=== PATIENT | female | born 1950 | race Caucasian/White ===

== ENCOUNTER 2017-01-11 09:06 | Emergency (ER) | payer MEDICARE, OTHER ==
--- NOTE | 2017-01-11 09:27 | ED ---
Fall HPI - General Chief Complaint: Fall Stated Complaint: FALL, RT HIP/LEG INJURY, Hx RT HIP Fx Time Seen by Provider: 01/11/17 09:16 Source: patient, RN notes reviewed Mode of arrival: wheelchair Limitations: physical limitation - History of Present Illness Initial Comments: This a 65-year-old female presents emergency Department chief complaint of fall 1 week ago. Patient states that she was in her hallway walking with her cane in which she slipped and fell. Patient failed onto her right side and has had continuous pain of her right hip and right knee. Patient states she's had a prior CVA and has weakness on her right side. Patient also had a fall one year ago and had a right total hip replacement. Patient states that she did not hit her head there was no loss conscious. Denies any back pain. Patient states she is on current pain medication but it's not helping. Patient did admit to being in constant pain ever since her surgery on her right side. Patient did not follow up with her surgeon for this pain after her fall. Denies any bowel bladder incontinence or retention. Denies any abdominal pain no nausea vomiting. - Related Data Home Medications Medication Instructions Recorded Confirmed RX: Lactulose 20 gm PO TID 01/18/16 01/18/16 RX: OXcarbazepine [Oxcarbazepine] 300 mg PO BID 01/18/16 01/18/16 RX: Propranolol [Inderal] 10 mg PO 0900,1800,2100 01/18/16 01/23/16 RX: levETIRAcetam [Levetiracetam] 1,000 mg PO HS 01/18/16 01/18/16 RX: levETIRAcetam [Levetiracetam] 500 mg PO BID@0800,1200 01/18/16 01/18/16 Previous Rx's Medication Instructions Recorded RX: Docusate [Colace] 100 mg PO BID #60 capsule 01/24/16 RX: Hydrocodone/Acetaminophen 1 - 2 each PO Q6HR PRN #90 tab 01/24/16 [Moro 5-325] Allergies Allergy/AdvReac Type Severity Reaction Status Date / Time morphine AdvReac Nausea & Verified 01/11/17 09:14 Vomiting Review of Systems ROS Statement: Those systems with pertinent positive or pertinent negative responses have been documented in the HPI. ROS Other: All systems not noted in ROS Statement are negative. Past Medical History Past Medical History: COPD, CVA/TIA, Hypertension, Liver Disease, Osteoarthritis (OA), Seizure Disorder Additional Past Medical History / Comment(s): hep C, cirrhosis, fatty liver, cva 2001- rt leg drags abit when pt tired.rt heel fx 2006 History of Any Multi-Drug Resistant Organisms: None Reported Past Surgical History: Joint Replacement, Tonsillectomy, Tubal Ligation Additional Past Surgical History / Comment(s): cataracts, colonoscopy, egd Past Anesthesia/Blood Transfusion Reactions: No Reported Reaction Past Psychological History: No Psychological Hx Reported Smoking Status: Current every day smoker Past Alcohol Use History: None Reported Past Drug Use History: Marijuana - Past Family History Mother Family Medical History: Myocardial Infarction ([place]) Father Family Medical History: Cancer Additional Family Medical History / Comment(s): from melanoma Brother(s) Family Medical History: Cancer Additional Family Medical History / Comment(s): 1 brohter from throat cancer, 1 brother has hypertension Sister(s) Family Medical History: Cancer Additional Family Medical History / Comment(s): breast cancer, hypertension General Exam Limitations: no limitations General appearance: alert, in no apparent distress Head exam: Present: atraumatic, normocephalic, normal inspection Respiratory exam: Present: normal lung sounds bilaterally. Absent: respiratory distress, wheezes, rales, rhonchi, stridor Cardiovascular Exam: Present: regular rate, normal rhythm, normal heart sounds. Absent: systolic murmur, diastolic murmur, rubs, gallop, clicks GI/Abdominal exam: Present: soft, normal bowel sounds. Absent: distended, tenderness, guarding, rebound, rigid Extremities exam: Present: other (Right hip patient has full range of motion there is no bony tenderness, there is no shortening or rotation right knee there is no tenderness, there is ecchymosis noted patient has full range of motion there is no tenderness to the tib-fib pedal pulses are equal bilaterally) Back exam: Present: full ROM. Absent: normal inspection, tenderness, paraspinal tenderness, vertebral tenderness Skin exam: Present: warm, dry, intact, normal color. Absent: rash Course Vital Signs 01/11/17 09:10 Temperature 98.6 F Pulse Rate 60 Respiratory 18 Rate Blood Pressure 140/92 O2 Sat by Pulse 100 Oximetry Medical Decision Making - Medical Decision Making 66-year-old female presented emergency department for fall 1 week ago pain to her right knee and right hip there is no acute fracture. Patient does take chronic pain meds at home. Patient will receive IM injection of pain is here and advised to follow-up with her surgeon Dr. Bar tomorrow. Return parameters were discussed. Patient agrees to plan. Disposition Clinical Impression: Fall, Contusion, hip, Right knee pain Disposition: HOME SELF-CARE Condition: Stable Instructions: Contusion in Adults (ED) Additional Instructions: Please return to the Emergency Department if symptoms worsen or any other concerns. Referrals: Grant Aguiar DO [Primary Care Provider] - 1-2 days Mack Bar DO [Doctor of Osteopathic Medicine] - 1-2 days Time of Disposition: 10:17
--- NOTE | 2017-01-11 09:51 | XR ---
EXAMINATION TYPE: XR knee complete RT DATE OF EXAM: 01/11/2017 CLINICAL HISTORY: pain TECHNIQUE: Three views of the right knee are obtained. COMPARISON: None. FINDINGS: There is no acute fracture/dislocation. The tri-compartment joint spaces appear within no rmal limits. The overlying soft tissue appears unremarkable. IMPRESSION: There is no acute fracture or dislocation.ICD 10 NO FRACTURE, INITIAL EVALUATION
--- NOTE | 2017-01-11 09:52 | XR ---
EXAMINATION TYPE: XR Hip RT and AP Pelvis DATE OF EXAM: 01/11/2017 CLINICAL HISTORY: Pelvic and right hip pain. TECHNIQUE: A single AP view of the pelvis is obtained. Two views of the right hip are obtained. COMPARISON: None. FINDINGS: There is no acute fracture/dislocation evident in the pelvis. The hip and sacroiliac joints appear s ymmetric and unremarkable. The overlying soft tissue appears unremarkable.Two views of right hip michael w no acute fracture or dislocation. Right hip prosthesis is in place. No focal lytic or sclerotic les ion seen in the proximal right femur. The overlying soft tissue is unremarkable. IMPRESSION: There is no acute fracture or dislocation in the pelvis or right hip.
[2017-01-11] MEDS ORDERED: HYDROmorphone 1 MG/ML 1 ML SYRINGE IM STA (10:16)
[2017-01-11 10:27] VITALS: BP 130/64; PULSE 64; RESP 17; TEMP 98.4
== END 2017-01-11 10:32 | disposition home or self-care (01) ==
LOC: EC 09:06
DX: S70.01XA Contusion of right hip, initial encounter (principal); M25.561 Pain in right knee; I10 Essential (primary) hypertension; G40.909 Epilepsy, unspecified, not intractable, without status epilepticus; F17.200 Nicotine dependence, unspecified, uncomplicated; Z88.5 Allergy status to narcotic agent; Z96.641 Presence of right artificial hip joint; Z79.899 Other long term (current) drug therapy; W01.0XXA Fall on same level from slipping, tripping and stumbling without subsequent striking against object, initial encounter; Y93.01 Activity, walking, marching and hiking; Y92.29 Other specified public building as the place of occurrence of the external cause
CPT/HCPCS: 99283; 96372; 73502; 73562; J1170

== ENCOUNTER → 2017-01-15 | Outpatient (CLI) | payer MEDICARE, OTHER ==
--- NOTE | 2017-01-15 11:49 | CT ---
EXAMINATION TYPE: CT pelvis wo con DATE OF EXAM: 01/15/2017 COMPARISON: NONE HISTORY: Aritifical hip joint CT DLP: 195.10 mGycm Automated exposure control for dose reduction was used. Unenhanced CT of the pelvis was performed with bone and soft tissue window settings submitted as well as coronal and sagittal reconstructions. FINDINGS: There is a subtle right hemisacral fracture extending from S1 through S2 identified seen best on margie nal image 34 as well as axial images 14 through 23. Sacroiliac joints are symmetric. There is also va nolvia nondisplaced fracture involving the inferior pubic ramus on the right. No definite displaced supe rior pubic ramus fracture is identified. Right hip prosthesis is noted to be in place. There is no evidence for loosening. No acetabular or pr oximal femoral fracture identified. Degenerative changes lower lumbar spine. IMPRESSION: SUBTLE ACUTE FRACTURES OF THE RIGHT HEMISACRUM AND RIGHT INFERIOR PUBIC RAMUS DISCUSSED.
== END | disposition home or self-care (01) ==
LOC: RADCTMAIN 11:09
PROVIDERS: ATTEND Orthopaedic Surgery
DX: S32.10XA Unspecified fracture of sacrum, initial encounter for closed fracture (principal); S32.591A Other specified fracture of right pubis, initial encounter for closed fracture; Z96.641 Presence of right artificial hip joint; Z47.1 Aftercare following joint replacement surgery
CPT/HCPCS: 72192

== ENCOUNTER → 2017-09-16 | Outpatient (CLI) | payer MEDICARE, OTHER ==
[~2017-09-16] MED LIST: SODIUM CHLORIDE 0.9% 500 ML in EMPTY BAG 1 BAG IV PRN; ZOLEDRONIC ACID 5 MG in SODIUM CHLORIDE 0.9% 100 ML IV NR
[2017-09-16 09:11] VITALS: BP 127/70; PULSE 56; RESP 16; TEMP 98.6
== END | disposition home or self-care (01) ==
LOC: PROCWHC3 08:52
PROVIDERS: ATTEND Family Medicine
DX: M81.0 Age-related osteoporosis without current pathological fracture (principal)
CPT/HCPCS: 96365; J3489

== ENCOUNTER → 2017-12-10 | Outpatient (CLI) | payer MEDICARE, OTHER ==
--- NOTE | 2017-12-10 23:01 | MR ---
EXAMINATION TYPE: MR hip RT wo con DATE OF EXAM: 12/10/2017 COMPARISON: CT 01/15/2017 HISTORY: 67-year-old female right hip replacement two years ago, evaluate for gluteus medius tear TECHNIQUE: Multiplanar, multisequence images of the right hip were obtained without IV contrast. FINDINGS: Extensive metal hardware artifact relating to the patient's right hip replacement. The rectus femoris and hamstring origins appear intact. Enthesopathy is noted at the origin of the ri ght sartorius. Iliopsoas insertions intact. There is a small intrasubstance tear involving the insert ional fibers of the lateral nucleus on the left. On the right, multiple intrasubstance tears are present within the lateral gluteus medius tendon jena uring up to 1.2 cm. Fluid signal along the greater trochanter extends anteriorly to the expected loca tion of the insertional gluteus minimus fibers. The posterosuperior insertion of the gluteus medius i s intact. More inferiorly along the posterolateral aspect of the greater trochanter, a sliver of flui d signal is present. There is similar mild atrophy of the gluteus medius muscle but more moderate to severe atrophy of the right gluteus minimus muscle. The axial STIR sequence shows focal soft tissue edema within the uppermost insertional fibers of the vastus lateralis. Mild degenerative changes at the left hip. Residual abnormal signal is present within the right sacral ala related to the patient's prior sacral alar fracture. Minimal residual signal remains along the right inferior pubic ramus compatible with healed fracture. Fibroid uterus with a dominant 2.9 cm fibroid along the right uterine body which is intramural. A tin y 6 mm intramural fundal fibroid is noted. There is moderate pelvic free fluid correlated clinically. IMPRESSION: 1. Extensive artifact relating to the patient's right hip replacement exacerbated by the high 3T magn et strength. 2. A few small intrasubstance tears of the insertional fibers of the lateral right gluteus medius alexandr suring up to 1.2 cm. No retracted tear. The posterosuperior fibers remain intact. Overall mild atroph y of the gluteus medius muscle belly is stable from 01/15/2017. 3. Suspect a more extensive tear of the right gluteus minimus with moderate to severe fatty atrophy o f its muscle belly. 4. Mild right-sided trochanteric bursitis and focal edema along the proximal most fibers of the vastu s lateralis possibly related to muscle strain. 5. Faint residual signal changes of the now healed right sacral alar and right inferior pubic rami fr actures. 6. Moderate pelvic free fluid. Clinical correlation recommended as to etiology.
== END | disposition home or self-care (01) ==
LOC: RADMRIMAIN 08:23
PROVIDERS: ATTEND Physical Medicine & Rehabilitation
DX: M70.61 Trochanteric bursitis, right hip (principal); S86.911A Strain of unspecified muscle(s) and tendon(s) at lower leg level, right leg, initial encounter; M62.561 Muscle wasting and atrophy, not elsewhere classified, right lower leg; R60.0 Localized edema; Z96.641 Presence of right artificial hip joint

== ENCOUNTER 2018-09-27 12:24 | Day surgery (SDC) | payer MEDICARE, OTHER ==
[2018-09-27 13:03] LABS: Mean Platelet Volume 9.2
[2018-09-27 13:10] VITALS: RESP 16; TEMP 98.5
[2018-09-27 13:14] LABS: INR 1.6 (<1.2); Prothrombin Time 15.9 sec (9.0-12.0)
[2018-09-27 13:19] LABS: Platelet Count 69 k/uL (150-450)
[2018-09-27 14:36] VITALS: BP 133/70; PULSE 93
--- NOTE | 2018-09-27 15:47 | US ---
Therapeutic paracentesis. DATE OF EXAM: 09/27/2018 CLINICAL HISTORY: Ascites The procedure was discussed with the patient. The risks, complications, benefits, and alternatives we re discussed and any questions were answered. Informed consent was obtained. The patient was placed s upine on the ultrasound table and prepped and draped in the usual sterile fashion. All elements of maximal barrier technique were utilized. Under ultrasound guidance, access into the right lower quadrant was obtained, via the paracentesis catheter system and direct ultrasound guidanc e. Approximately 3.9 liters of straw-colored fluid was removed. The patient was stable throughout the pr ocedure and remained stable upon discharge from Department of Radiology. IMPRESSION: Successful therapeutic paracentesis under ultrasound guidance.
== END 2018-09-27 15:02 | disposition home or self-care (01) ==
LOC: RADPROMAIN 12:24
PROVIDERS: ATTEND Internal Medicine Hematology & Oncology
DX: R18.8 Other ascites (principal)
CPT/HCPCS: 36415; 49083; 82565; 85049; 85610

== ENCOUNTER 2018-10-12 16:18 | Inpatient (IN) | payer MEDICARE, OTHER ==
[2018-10-12] MEDS ORDERED: HYDROmorphone 1 MG/ML 1 ML SYRINGE IVP STA (16:36)
--- NOTE | 2018-10-12 16:48 | ED ---
Recheck HPI - General Chief Complaint: Chest Pain Stated Complaint: CHEST PAIN, Ca PATIENT Time Seen by Provider: 10/12/18 16:35 Source: patient, RN notes reviewed, old records reviewed Mode of arrival: wheelchair Limitations: no limitations - History of Present Illness Initial Comments: This is a 68-year-old female the ER for evaluation. Patient is known liver CA. Patient has increasing amount of ascites with shortness of breath and chest pain. Family states patient was seen stage IV, she is going to current chemotherapy. Patient denies any shortness of breath currently, no fevers per patient. No nausea vomiting or diarrhea she does have chronic pain and she is having pain currently MD Complaint: other (Ascites is increasing) -: days(s) Initial Visit For: burn Returns Today for: Called Because of Abnormal Lab/Test Symptoms Since Prior Visit: no new symptoms Context: planned re-check (Increasing ascites and pain. Abdominal pain chest pain) Associated Symptoms: chest pain, shortness of breath, abdominal pain - Related Data Home Medications Medication Instructions Recorded Confirmed levETIRAcetam [Levetiracetam] 500 mg PO QID 01/18/16 10/12/18 Buprenorphine HCl [Belbuca] 450 mcg BC BID 09/23/18 10/12/18 Cholecalciferol [Vitamin D3] 1,000 unit PO DAILY 09/23/18 10/12/18 Furosemide [Lasix] 20 mg PO DAILY 09/23/18 10/12/18 Magnesium Oxide [Mag-Ox] 400 mg PO DAILY 09/23/18 10/12/18 Ondansetron [Zofran] 4 mg PO DAILY 09/23/18 10/12/18 Ranitidine HCl [Zantac] 150 mg PO HS 09/23/18 10/12/18 Spironolactone [Aldactone] 50 mg PO DAILY 09/23/18 10/12/18 oxyCODONE HCL [oxyCODONE HCL (IR)] 15 mg PO Q6H 10/12/18 10/12/18 Allergies Allergy/AdvReac Type Severity Reaction Status Date / Time morphine AdvReac Nausea & Verified 10/12/18 17:08 Vomiting Review of Systems ROS Statement: Those systems with pertinent positive or pertinent negative responses have been documented in the HPI. ROS Other: All systems not noted in ROS Statement are negative. Past Medical History Past Medical History: Cancer, COPD, CVA/TIA, Hypertension, Liver Disease, Osteoarthritis (OA), Seizure Disorder Additional Past Medical History / Comment(s): hep C, cirrhosis, cva 2002- rt leg & arm weak, rt heel fx 2007, stage 4 liver cancer, brain aneurysm 17 yrs. ago, last seizure couple years ago, fluid retention in abdomen, legs History of Any Multi-Drug Resistant Organisms: None Reported Past Surgical History: Joint Replacement, Tonsillectomy, Tubal Ligation Additional Past Surgical History / Comment(s): cataracts, colonoscopy, egd, right hip replaced, ablation of liver Past Anesthesia/Blood Transfusion Reactions: No Reported Reaction Past Psychological History: No Psychological Hx Reported Smoking Status: Current some day smoker Past Alcohol Use History: None Reported Past Drug Use History: Marijuana - Past Family History Mother Family Medical History: Myocardial Infarction ([place]) Father Family Medical History: Cancer Additional Family Medical History / Comment(s): from melanoma Brother(s) Family Medical History: Cancer Additional Family Medical History / Comment(s): 1 brohter from throat cancer, 1 brother has hypertension Sister(s) Family Medical History: Cancer Additional Family Medical History / Comment(s): breast cancer, hypertension General Exam - General Exam Comments Initial Comments: Significant abdominal ascites Limitations: no limitations General appearance: alert, in no apparent distress Head exam: Present: atraumatic, normocephalic, normal inspection Eye exam: Present: normal appearance, PERRL, EOMI. Absent: scleral icterus, conjunctival injection, periorbital swelling ENT exam: Present: normal exam, mucous membranes moist Neck exam: Present: normal inspection. Absent: tenderness, meningismus, lymphadenopathy Respiratory exam: Present: normal lung sounds bilaterally. Absent: respiratory distress, wheezes, rales, rhonchi, stridor Cardiovascular Exam: Present: regular rate, normal rhythm, normal heart sounds. Absent: systolic murmur, diastolic murmur, rubs, gallop, clicks GI/Abdominal exam: Present: soft, normal bowel sounds. Absent: distended, tenderness, guarding, rebound, rigid Extremities exam: Present: normal inspection, full ROM, normal capillary refill. Absent: tenderness, pedal edema, joint swelling, calf tenderness Back exam: Present: normal inspection Neurological exam: Present: alert, oriented X3, CN II-XII intact Psychiatric exam: Present: normal affect, normal mood Skin exam: Present: warm, dry, intact, normal color. Absent: rash Course Vital Signs 10/12/18 10/12/18 10/12/18 16:21 17:30 18:30 Temperature 98.4 F Pulse Rate 109 H 98 98 Respiratory 18 20 20 Rate Blood Pressure 121/59 144/86 131/75 O2 Sat by Pulse 98 99 99 Oximetry - Reevaluation(s) Reevaluation #1: 10/12/18 17:33 Medical record reviewed Reevaluation #2: 10/12/18 17:33 Patient be admitted for possible paracentesis as well as oncology evaluation Medical Decision Making - Medical Decision Making 68 female the ER with significant abdominal ascites. Weakness. Pain. Chest pain. Patient be admitted for therapeutic paracentesis and oncology evaluation - Lab Data Result diagrams: 10/12/18 17:30 10/12/18 17:30 Lab Results 10/12/18 10/12/18 10/12/18 Range/Units 17:30 17:30 17:30 WBC 6.9 (3.8-10.6) k/uL RBC 3.57 L (3.80-5.40) m/uL Hgb 12.6 (11.4-16.0) gm/dL Hct 37.4 (34.0-46.0) % MCV 104.8 H (80.0-100.0) fL MCH 35.2 H (25.0-35.0) pg MCHC 33.5 (31.0-37.0) g/dL RDW 16.5 H (11.5-15.5) % Plt Count 43 L (150-450) k/uL Neutrophils % 80 % Lymphocytes % 6 % Monocytes % 11 % Eosinophils % 2 % Basophils % 0 % Neutrophils # 5.5 (1.3-7.7) k/uL Lymphocytes # 0.4 L (1.0-4.8) k/uL Monocytes # 0.7 (0-1.0) k/uL Eosinophils # 0.1 (0-0.7) k/uL Basophils # 0.0 (0-0.2) k/uL Manual Slide Review Performed Anisocytosis Slight Macrocytosis Moderate PT (9.0-12.0) sec INR (<1.2) APTT (22.0-30.0) sec Sodium 133 L (137-145) mmol/L Potassium 4.6 (3.5-5.1) mmol/L Chloride 101 (98-107) mmol/L Carbon Dioxide 24 (22-30) mmol/L Anion Gap 8 mmol/L BUN 22 H (7-17) mg/dL Creatinine 0.44 L (0.52-1.04) mg/dL Est GFR (CKD-EPI)AfAm >90 (>60 ml/min/1.73 sqM) Est GFR (CKD-EPI)NonAf >90 (>60 ml/min/1.73 sqM) Glucose 98 (74-99) mg/dL Plasma Lactic Acid Vargas 2.4 H* (0.7-2.0) mmol/L Calcium 8.7 (8.4-10.2) mg/dL Total Bilirubin 4.0 H (0.2-1.3) mg/dL AST 138 H (14-36) U/L ALT 65 H (9-52) U/L Alkaline Phosphatase 161 H (38-126) U/L Ammonia 55 H (<30) umol/L Troponin I (0.000-0.034) ng/mL Total Protein 6.0 L (6.3-8.2) g/dL Albumin 2.8 L (3.5-5.0) g/dL Amylase 41 (30-110) U/L Lipase 120 (23-300) U/L 10/12/18 10/12/18 Range/Units 17:30 17:30 WBC (3.8-10.6) k/uL RBC (3.80-5.40) m/uL Hgb (11.4-16.0) gm/dL Hct (34.0-46.0) % MCV (80.0-100.0) fL MCH (25.0-35.0) pg MCHC (31.0-37.0) g/dL RDW (11.5-15.5) % Plt Count (150-450) k/uL Neutrophils % % Lymphocytes % % Monocytes % % Eosinophils % % Basophils % % Neutrophils # (1.3-7.7) k/uL Lymphocytes # (1.0-4.8) k/uL Monocytes # (0-1.0) k/uL Eosinophils # (0-0.7) k/uL Basophils # (0-0.2) k/uL Manual Slide Review Anisocytosis Macrocytosis PT 19.4 H (9.0-12.0) sec INR 2.0 H (<1.2) APTT 28.0 (22.0-30.0) sec Sodium (137-145) mmol/L Potassium (3.5-5.1) mmol/L Chloride (98-107) mmol/L Carbon Dioxide (22-30) mmol/L Anion Gap mmol/L BUN (7-17) mg/dL Creatinine (0.52-1.04) mg/dL Est GFR (CKD-EPI)AfAm (>60 ml/min/1.73 sqM) Est GFR (CKD-EPI)NonAf (>60 ml/min/1.73 sqM) Glucose (74-99) mg/dL Plasma Lactic Acid Vargas (0.7-2.0) mmol/L Calcium (8.4-10.2) mg/dL Total Bilirubin (0.2-1.3) mg/dL AST (14-36) U/L ALT (9-52) U/L Alkaline Phosphatase (38-126) U/L Ammonia (<30) umol/L Troponin I <0.012 (0.000-0.034) ng/mL Total Protein (6.3-8.2) g/dL Albumin (3.5-5.0) g/dL Amylase (30-110) U/L Lipase (23-300) U/L - EKG Data -: EKG Interpreted by Me (EKG shows sinus tachycardia rate of 103, SC 140 with history of 6, QTc 437) Disposition Clinical Impression: Weakness, Ascites, Encephalopathy, Hyperammonemia, Dehydration Disposition: ADMITTED IP TO THIS [facility] Condition: Fair Is patient prescribed a controlled substance at d/c from ED?: No Referrals: Grant Aguiar DO [Primary Care Provider] - 1-2 days
[2018-10-12 18:05] LABS: Prothrombin Time 19.4 sec (9.0-12.0)
[2018-10-12 18:08] LABS: ALT 65 U/L (9-52); AST 138 U/L (14-36); Albumin 2.8 g/dL (3.5-5.0); Alkaline Phosphatase 161 U/L (38-126); Amylase 41 U/L (30-110); Anion Gap 8 mmol/L; Blood Urea Nitrogen 22 mg/dL (7-17); Calcium 8.7 mg/dL (8.4-10.2); Carbon Dioxide 24 mmol/L (22-30); Chloride 101 mmol/L (98-107); Glucose 98 mg/dL (74-99); Lipase 120 U/L (23-300); Potassium 4.6 mmol/L (3.5-5.1); Sodium 133 mmol/L (137-145)
[2018-10-12 18:11] LABS: Anisocytosis Slight; Basophils % (A) 0 %; Eosinophils # (A) 0.1 k/uL (0-0.7); Eosinophils % (A) 2 %; HCT 37.4 % (34.0-46.0); HGB 12.6 gm/dL (11.4-16.0); Lymphocytes # (A) 0.4 k/uL (1.0-4.8); Lymphocytes % (A) 6 %; MCH 35.2 pg (25.0-35.0); MCHC 33.5 g/dL (31.0-37.0); MCV 104.8 fL (80.0-100.0); Macrocytosis Moderate; Mean Platelet Volume 8.7; Monocytes # (A) 0.7 k/uL (0-1.0); Monocytes % (A) 11 %; Neutrophils # (A) 5.5 k/uL (1.3-7.7); Neutrophils % (A) 80 %; RBC 3.57 m/uL (3.80-5.40); RDW 16.5 % (11.5-15.5); WBC 6.9 k/uL (3.8-10.6)
[2018-10-12 18:16] LABS: Lactic Acid, Venous 2.4 mmol/L (0.7-2.0)
[2018-10-12 18:37] LABS: Platelet Count 43 k/uL (150-450)
[2018-10-12] MEDS ORDERED: SODIUM CHLORIDE 0.9% 1,000 ML IV STA ×2 (18:39)
[2018-10-12] MEDS ORDERED: LACTULOSE 20 GM/30 ML CUP PO ONE (18:39)
[2018-10-12] MEDS ORDERED: SODIUM CHLORIDE 0.9% 500 ML 500 ML IV STA (18:39)
[2018-10-12] MEDS ORDERED: SODIUM CHLORIDE 0.9% 1,000 ML IV ONE (18:39)
[2018-10-12] MEDS: HYDROmorphone 1 MG/ML 1 ML SYRINGE IVP PRN (21:07)
[2018-10-12] MEDS ORDERED: NITROGLYCERIN OINT 1 INCH/GM PACKET TOPICAL PRN (21:32)
[2018-10-12] MEDS ORDERED: CALCIUM CARBONATE 500 MG CHEWABLE PO PRN (21:33)
[2018-10-12 21:59] LABS: Creatine Kinase 56 U/L (30-135)
[2018-10-12 22:12] LABS: Creatine Kinase MB 2.2 ng/mL (0.0-2.4); Troponin I <0.012 ng/mL (0.000-0.034)
[2018-10-12] MEDS: BUPRENORPHINE BC SCH (22:35)
[2018-10-12] MEDS: levETIRAcetam 500 MG TAB PO SCH (22:37)
[2018-10-13] MEDS: HYDROmorphone 1 MG/ML 1 ML SYRINGE IVP PRN ×2 (04:01→16:46)
[2018-10-13] MEDS: BUPRENORPHINE BC SCH (08:03)
[2018-10-13] MEDS: MAGNESIUM OXIDE 400 MG TAB PO SCH (08:13)
[2018-10-13] MEDS: LACTULOSE 20 GM/30 ML CUP PO SCH ×2 (08:13→21:39)
[2018-10-13] MEDS: SPIRONOLACTONE 25 MG TAB PO SCH (08:13)
[2018-10-13] MEDS: levETIRAcetam 500 MG TAB PO SCH ×4 (08:14→21:39)
[2018-10-13] MEDS ORDERED: ENOXAPARIN 40 MG/0.4 ML SYRINGE SQ SCH (09:00)
[2018-10-13] MEDS ORDERED: PHYTONADIONE 5 MG in SODIUM CHLORIDE 0.9% 50 ML IVPB STA (09:45)
[2018-10-13 10:42] LABS: Bilirubin, Conjugated 0.3 mg/dL (0.0-0.3); Bilirubin, Delta 1.2 mg/dL (0.0-0.2); Bilirubin,Unconjugated 2.4 mg/dL (0.0-1.1); Total Bilirubin 3.9 mg/dL (0.2-1.3)
[2018-10-13] MEDS: METOPROLOL TARTRATE 25 MG TAB PO SCH ×2 (11:14→21:39)
--- NOTE | 2018-10-13 11:24 | ECHOF ---
Referral Reason:cp, ascites MEASUREMENTS -------- HEIGHT: 170.2 cm WEIGHT: 49.9 kg BP: RVIDd: 3.7 cm (< 3.3) IVSd: 1.0 cm (0.6 - 1.1) LVIDd: 3.3 cm (3.9 - 5.3) LVPWd: 1.1 cm (0.6 - 1.1) IVSs: 1.3 cm LVIDs: 2.0 cm LVPWs: 1.6 cm LA Diam: 3.9 cm (2.7 - 3.8) Ao Diam: 3.2 cm (2.0 - 3.7) AV Cusp: 2.4 cm (1.5 - 2.6) LA Diam: 4.0 cm (2.7 - 3.8) EPSS: 1.4 cm MV E Darion: 0.54 m/s MV DecT: 254 ms MV A Darion: 0.66 m/s MV E/A Ratio: 0.82 RAP: 5.00 mmHg RVSP: 11.52 mmHg MV EF SLOPE: 77.73 mm/s (70 - 150) MV EXCURSION: 2.12 cm (> 18.000) FINDINGS -------- Sinus rhythm. This was a technically good study. The left ventricular size is normal. Left ventricular systolic function is hyperdynamic with an est imated EF of >70%. The right ventricle is normal in size. The left atrial size is normal. The right atrial size is normal. Interatrial Septem not well visulized. The aortic valve is trileaflet, and appears structurally normal. No aortic stenosis or regurgitation. Mild mitral annular calcification present. Mild mitral regurgitation is present. Mild tricuspid regurgitation present. There is no evidence of pulmonary hypertension. The right v entricular systolic pressure, as measured by Doppler, is 11.52mmHg. There is no pulmonic regurgitation present. The aortic root size is normal. IVC Not well visulized. There is a small pericardial effusion is located near the right ventricle. Moderate Pleural Effusio n. CONCLUSIONS -------- 1. The left ventricular size is normal. 2. Left ventricular systolic function is hyperdynamic with an estimated EF of >70%. 3. The right ventricle is normal in size. 4. The left atrial size is normal. 5. The right atrial size is normal. 6. Interatrial Septem not well visulized. 7. The aortic valve is trileaflet, and appears structurally normal. No aortic stenosis or regurgitati on. 8. Mild mitral annular calcification present. 9. Mild mitral regurgitation is present. 10. Mild tricuspid regurgitation present. 11. There is no evidence of pulmonary hypertension. 12. The right ventricular systolic pressure, as measured by Doppler, is 11.52mmHg. 13. There is no pulmonic regurgitation present. 14. The aortic root size is normal. 15. IVC Not well visulized. 16. There is a small pericardial effusion is located near the right ventricle. 17. Moderate Pleural Effusion. [employer] MACHINE OPERATOR: Katy Jaramillo RDCS
[2018-10-13 12:03] LABS: Appearance,Urine Cloudy (Clear); Bilirubin,Urine 1+ (Negative); Blood,Urine Moderate (Negative); Color,Urine Dark Brown; Glucose,Urine (UA) Negative (Negative); Ketones,Urine Trace (Negative); Leukocyte Esterase,Urine Small (Negative); Mucus,Urine Many /hpf; Nitrite,Urine Negative (Negative); Protein,Urine 2+ (Negative); RBC,Urine >182 /hpf (0-5); Specific Gravity,Urine 1.031 (1.001-1.035)
--- NOTE | 2018-10-13 13:22 | XR ---
"EXAMINATION TYPE: XR chest 2V DATE OF EXAM: 10/13/2018 COMPARISON: 01/17/2019 INDICATION: Elevated lactic acid TECHNIQUE: Frontal and lateral views of the chest are obtained. FINDINGS: The heart size is normal. The pulmonary vasculature is normal. Posterior pleural effusions are present bilaterally. There is a nodular density adjacent to the aortic arch measuring 2.5 cm. Workup for primary and metas tatic lesion is recommended. This is at the second rib and which potentially could be creating a summ ation density.. IMPRESSION: 1. Mass is suspected at the left upper lobe measuring 2.[address] chest recommended for additional zain luation. 2. Small posterior pleural effusions. A [place] level critical message alert has been initiated for Solomon Flores MD via the [employer] 36 0 | Critical Results System on 10/13/2018 1:19 PM. This message alert has been sent to Solomon Flores MD via the preferences provided by the clinician for the receipt of Radiology Critical Findings. [facility] ID [id number]."
--- NOTE | 2018-10-13 13:41 | P.CRDCN ---
History of Present Illness History of present illness: This is a pleasant 68-year-old female past medical history significant for stage IV liver cancer diagnosed in June of this year, hypertension, CVA in the past in the setting of a brain aneurysm, seizure disorder, hepatitis C, cirrhosis and former nicotine dependence. She denies history of coronary artery disease and does not follow with a ribbon cutter for any reason. We've been asked to see her in consultation secondary to chest discomfort. She presented to the hospital yesterday afternoon with symptoms of shortness of breath, ascites and chest discomfort. 2 weeks ago she underwent a therapeutic paracentesis with 3.9 L of straw-colored fluid removed. She states the pain in her chest as a sharp stabbing type pain that has been constant for the previous 2 days. There is no radiation to the arm, back, neck or jaw. The pain is not intensified by deep breathing, coughing or movement of her torso. She states her shortness of breath is positional as well as exertional. She has significant lower extremity edema and is currently maintained on Aldactone. EKG obtained on admission reveals sinus mechanism heart rate of 103 with nonspecific T-wave abnormality and T-wave flattening in the inferior leads. There is no old EKG for comparison. Laboratory data reviewed, WBC 6.9, hemoglobin 12.6, platelets 43, INR 2.0, sodium 133, potassium 4.6, creatinine 0.44, lactic acid 2.8, total bilirubin 4, AST 138, ALT 65, alkaline phosphatase 161, ammonia 55, cardiac enzymes negative 3. At the time of my exam: CONSTITUTIONAL: Denies fever. Denies chills. EYES: Denies blurred vision. Denies vision changes. Denies eye pain. EARS, NOSE, MOUTH & THROAT: Denies headache. Denies sore throat. Denies ear pain. CARDIOVASCULAR: Complains of chest pain. Complains of shortness of breath. Complains of orthopnea. Denies PND. Denies palpitations. RESPIRATORY: Denies cough. GASTROINTESTINAL: Complains of abdominal pain. Denies diarrhea. Denies constipation. Denies nausea. Denies vomiting. MUSCULOSKELETAL: Denies myalgias. INTEGUMENTARY: Denies pruitis. Denies rash. NEUROLOGIC: Denies numbness. Denies tingling. Denies weakness. PSYCHIATRIC: Denies anxiety. Denies depression. ENDOCRINE: Complains of fatigue. Denies weight change. Denies polydipsia. Denies polyurina. GENITOURINARY: Denies burning, hematuria or urgency with micturation. HEMATOLOGIC: Denies history of anemia. Denies bleeding. Blood pressure 129/86 heart rate 98 afebrile maintaining oxygen saturation on room air GENERAL: This is a 68-year-old male in no apparent distress at the time of my examination. HEENT: Head is atraumatic, normocephalic. Pupils are equal, round. Sclerae anicteric. Conjunctivae are clear. Mucous membranes of the mouth are moist. Neck is supple. There is no jugular venous distention. No carotid bruit is heard. LUNGS: Clear to auscultation no wheezes, rales or rhonchi. No chest wall tenderness is noted on palpation or with deep breathing. Diminished bilatera lly. HEART: Regular rate and rhythm without murmurs, rubs or gallops. S1 and S2 heard. ABDOMEN: Firm, distended, nontender. Bowel sounds are heard. EXTREMITIES: Significant bilateral lower extremity 3+ pitting peripheral edema and no calf tenderness noted. VASCULAR: Radial and dorsalis pedis pulses palpated, no evidence of clubbing. NEUROLOGIC: Patient is awake, alert and oriented x3. ASSESSMENT Acute ascites status post recent paracentesis Stage IV liver cancer Chest pain, atypical for angina. An acute coronary event has been ruled out PLAN Chest discomfort is very atypical for angina most likely related to increased fluid overload secondary to liver CA causing increased diaphragmatic pressure. Echocardiogram has been obtained and reviewed. Due to hyperdynamic LV we will recommend initiating on Lopressor 25 mg twice a day. Ongoing medical management. No further cardiac workup at this time. Thank you kindly for this consultation. Nurse Practitioner note has been reviewed, I agree with a documented findings and plan of care. Patient was seen and examined. Past Medical History Past Medical History: Cancer, CVA/TIA, Hypertension, Liver Disease, Osteoarthritis (OA), Seizure Disorder Additional Past Medical History / Comment(s): hep C, cirrhosis, cva 2001- rt leg & arm weak, rt heel fx 2006, stage 4 liver cancer, brain aneurysm 17 yrs. ago, last seizure couple years ago, fluid retention in abdomen, legs, immnotherapy- 09/30 History of Any Multi-Drug Resistant Organisms: None Reported Past Surgical History: Joint Replacement, Tonsillectomy, Tubal Ligation Additional Past Surgical History / Comment(s): cataracts, colonoscopy, egd, right hip replaced, ablation of liver Past Anesthesia/Blood Transfusion Reactions: No Reported Reaction Past Psychological History: No Psychological Hx Reported Additional Psychological History / Comment(s): Lives with , Javan. Walker, cane, shower chair. Bars in the shower. Power scooter at home. Hospital bed on order. Smoking Status: Former smoker Past Alcohol Use History: None Reported Additional Past Alcohol Use History / Comment(s): smoked for > 40 years smoked1 cig per day, quit completely in June 2018 quit drinking 2001 Past Drug Use History: Marijuana Additional Drug Use History / Comment(s): Uses marijuana daily. - Past Family History Mother Family Medical History: Myocardial Infarction ([place]) Father Family Medical History: Cancer Additional Family Medical History / Comment(s): from melanoma Brother(s) Family Medical History: Cancer Additional Family Medical History / Comment(s): 1 brohter from throat cancer, 1 brother has hypertension Sister(s) Family Medical History: Cancer Additional Family Medical History / Comment(s): breast cancer, hypertension Medications and Allergies Home Medications Medication Instructions Recorded Confirmed Type levETIRAcetam [Levetiracetam] 500 mg PO QID 01/18/16 10/12/18 History Buprenorphine HCl [Belbuca] 450 mcg BC BID 09/23/18 10/12/18 History Cholecalciferol [Vitamin D3] 1,000 unit PO DAILY 09/23/18 10/12/18 History Furosemide [Lasix] 20 mg PO DAILY 09/23/18 10/12/18 History Magnesium Oxide [Mag-Ox] 400 mg PO DAILY 09/23/18 10/12/18 History Ondansetron [Zofran] 4 mg PO DAILY 09/23/18 10/12/18 History Ranitidine HCl [Zantac] 150 mg PO HS 09/23/18 10/12/18 History Spironolactone [Aldactone] 50 mg PO DAILY 09/23/18 10/12/18 History oxyCODONE HCL [oxyCODONE HCL (IR)] 15 mg PO Q6H 10/12/18 10/12/18 History Allergies Allergy/AdvReac Type Severity Reaction Status Date / Time morphine AdvReac Nausea & Verified 10/12/18 17:08 Vomiting Physical Exam Vitals: Vital Signs Temp Pulse Pulse Resp BP BP Pulse Ox 10/13/18 05:00 98.1 F 98 16 129/86 94 L 10/12/18 23:19 91 141/87 99 10/12/18 23:10 99 168/99 10/12/18 21:28 97.7 F 89 16 143/79 98 10/12/18 19:51 93 16 142/80 96 10/12/18 19:46 98.0 F 93 16 130/76 95 10/12/18 19:20 96 16 134/87 94 L 10/12/18 18:30 98 20 131/75 99 10/12/18 17:30 98 20 144/86 99 10/12/18 16:21 98.4 F 109 H 18 121/59 98 Intake and Output 10/12/18 10/13/18 10/13/18 22:59 06:59 14:59 Intake Total 590 1340 Output Total 200 Balance 590 1140 Intake: Intake, IV Titration 800 Amount Sodium Chloride 0.9% 1, 800 000 ml @ 100 mls/hr IV . Q10H ONE Rx#:[id number] Oral 590 540 Output: Urine 200 Other: Voiding Method Bedside Commode # Bowel Movements 3 Weight 49.895 kg Results 10/12/18 17:30 10/12/18 17:30 Cardiac Enzymes 10/12/18 10/12/18 10/12/18 Range/Units 17:30 17:30 21:41 AST 138 H (14-36) U/L CK-MB (CK-2) 2.2 (0.0-2.4) ng/mL Troponin I <0.012 <0.012 (0.000-0.034) ng/mL 10/13/18 Range/Units 03:58 AST (14-36) U/L CK-MB (CK-2) (0.0-2.4) ng/mL Troponin I <0.012 (0.000-0.034) ng/mL Coagulation 10/12/18 Range/Units 17:30 PT 19.4 H (9.0-12.0) sec APTT 28.0 (22.0-30.0) sec CBC 10/12/18 Range/Units 17:30 WBC 6.9 (3.8-10.6) k/uL RBC 3.57 L (3.80-5.40) m/uL Hgb 12.6 (11.4-16.0) gm/dL Hct 37.4 (34.0-46.0) % Plt Count 43 L (150-450) k/uL Comprehensive Metabolic Panel 10/12/18 Range/Units 17:30 Sodium 133 L (137-145) mmol/L Potassium 4.6 (3.5-5.1) mmol/L Chloride 101 (98-107) mmol/L Carbon Dioxide 24 (22-30) mmol/L BUN 22 H (7-17) mg/dL Creatinine 0.44 L (0.52-1.04) mg/dL Glucose 98 (74-99) mg/dL Calcium 8.7 (8.4-10.2) mg/dL AST 138 H (14-36) U/L ALT 65 H (9-52) U/L Alkaline Phosphatase 161 H (38-126) U/L Total Protein 6.0 L (6.3-8.2) g/dL Albumin 2.8 L (3.5-5.0) g/dL Current Medications Generic Name Dose Route Start Last Admin Trade Name Freq PRN Reason Stop Dose Admin Calcium Carbonate/Glycine 500 mg 10/12/18 21:33 Tums PO TID PRN Heartburn Enoxaparin Sodium 40 mg 10/13/18 09:00 10/13/18 08:02 Lovenox SQ Not Given DAILY [facility] Famotidine 20 mg 10/13/18 21:00 Pepcid PO HS KARELY Hydromorphone HCl 1 mg 10/12/18 16:36 10/13/18 04:01 Dilaudid IVP 1 mg Q4HR PRN Administration Pain Phytonadione 5 mg/ Sodium 50.5 mls @ 100 mls/hr 10/13/18 09:45 Chloride IVPB 10/13/18 10:15 ONCE STA Lactulose 20 gm 10/13/18 09:00 10/13/18 08:13 Cephulac PO 20 gm BID KARELY Administration Levetiracetam 500 mg 10/12/18 22:00 10/13/18 08:14 Keppra PO 500 mg QID KARELY Administration Magnesium Oxide 400 mg 10/13/18 09:00 10/13/18 08:13 Mag-Ox PO 400 mg DAILY KARELY Administration Belbuca 450 Mcg 450 mcg 10/12/18 21:15 10/13/18 08:03 BC Not Given BID KARELY Oxycodone HCl 15 mg 10/13/18 00:00 10/13/18 05:58 Oxyir PO 15 mg Q6H KARELY Administration Spironolactone 50 mg 10/13/18 09:00 10/13/18 08:13 Aldactone PO 50 mg DAILY KARELY Administration Intake and Output 10/12/18 10/13/18 10/13/18 22:59 06:59 14:59 Intake Total 590 1340 Output Total 200 Balance 590 1140 Intake: Intake, IV Titration 800 Amount Sodium Chloride 0.9% 1, 800 000 ml @ 100 mls/hr IV . Q10H ONE Rx#:[id number] Oral 590 540 Output: Urine 200 Other: Voiding Method Bedside Commode # Bowel Movements 3 Weight 49.895 kg 10/12/18 17:30 10/12/18 17:30
[2018-10-13] MEDS: BELBUCA MISCELLANE SCH ×2 (14:10→21:39)
--- NOTE | 2018-10-13 16:38 | HP ---
HISTORY AND PHYSICAL DATE OF ADMISSION: 10/12/2018 DATE OF SERVICE: 10/13/2018 PRESENTING COMPLAINT: Weak, tired, fall. HISTORY OF PRESENTING COMPLAINT: This is a pleasant 68-year-old patient of Dr. Aguiar. Chronic stable medical conditions include left-sided weakness from prior stroke, hypertension, osteoarthritis, seizure disorder. The patient has also got cirrhosis from hepatitis C that has progressed to hepatocellular carcinoma which is stage IV with metastasis to the lungs. The patient is on treatment by Dr. Linares. at the bedside. The patient presented with multitude of symptoms, abdomen distended, weak, tired, run down. The patient is barely able to get around. Yesterday, fell from the sofa, is having some pain in the anterior chest wall, has been losing weight. Appetite is okay. Bowels are okay. Paracentesis was ordered but pro-time is up, hence vitamin K was ordered. Because of the chest pain, cardiology was consulted. REVIEW OF SYSTEMS: CONSTITUTIONAL: Tired, weight loss. HEENT: None. RESPIRATORY: Some shortness of breath. CARDIOVASCULAR: As above. GASTROINTESTINAL: Abdomen distended. GENITOURINARY: None. MUSCULOSKELETAL: Pain in the joints. DERMATOLOGICAL: Some bruising. HEMATOLOGICAL: None. LYMPHATICS: None. PSYCHIATRY: A bit anxious. NEUROLOGICAL: None. PAST MEDICAL HISTORY: Left-sided weakness prior stroke, hypertension, osteoarthritis, seizure disorder, cirrhosis, hepatitis C, hepatocellular carcinoma. PAST SURGICAL HISTORY: Joint replacement, tonsillectomy, tubal ligation, cataracts, right hip replaced, ablation of the liver. SOCIAL HISTORY: Patient lives with her , Javan. Has a walker and support at home, but is very weak. The patient smoked for more than 40 years. Only a few cigarettes a day, stopped about 4 months ago. The patient was drinking heavy in the past, stopped drinking about over 15 years ago. Does use marijuana daily. FAMILY HISTORY: Myocardial infarction, melanoma. HOME MEDICATIONS: 1. Oxycodone 50 mg q.6. 2. Aldactone 50 mg a day. 3. Lasix 20 mg a day. 4. Vitamin D3 1000 units a day. 5. Zantac 150 mg q.h.s. 6. Zofran 4 mg p.o. daily. 7. Magnesium oxide 400 mg p.o. daily. 8. 450 mcg BC b.i.d. 9. Keppra 100 mg q.i.d. ALLERGIES: MORPHINE. PHYSICAL EXAMINATION: VITAL SIGNS: Temperature 98.4, pulse 109, respiration 18, blood pressure 120/59. Pulse ox 98% on room air. GENERAL APPEARANCE: Tired. Emaciated. Lying in bed. BMI 17.2. EYES: Pupils equal. Conjunctivae pale. HEENT: External appearance of nose and ears normal. Oral cavity dry. NECK: JVD not raised. Mass not palpable. RESPIRATORY: Effort increased. LUNGS: Diminished breath sounds. CARDIOVASCULAR: 1st and 2nd sounds normal. No edema. ABDOMEN: Distended, soft. Liver and spleen not palpable. LYMPHATICS: No lymph nodes palpable in the neck and axilla. PSYCHIATRY: Alert and oriented x3. Mood and affect normal. NEUROLOGICAL: Pupils equal. Cranial nerves grossly intact. Power and sensation grossly intact. MUSCULOSKELETAL: Some tenderness over the sternal bone. INVESTIGATIONS: White count 6.9, hemoglobin 12.6, platelets 43. Pro-time 19.4, potassium 4.6, BUN 22, creatinine 0.44, plasma lactic acid 2.4, total bilirubin 4, ammonia level 55, troponin . Albumin 2.8. UA positive leuko esterase, WBC, urine mucus positive. ASSESSMENT: 1. Anterior chest wall pain with some reproducible pain, likely from the pain that followed the patient taking a fall from the sofa, does not sound to be cardiac. 2. Severe protein-calorie malnutrition with bony prominences, loss of muscle mass, albumin down to 2.8. 3. Hyperammonemia secondary to hepatocellular cancer. 4. Lactic acidosis type B, no evidence of sepsis. 5. Hypercoagulable state due to vitamin K deficiency with prolonged protime. 6. Severe thrombocytopenia due to chronic liver disease. 7. Essential hypertension. 8. Primary osteoarthritis. 9. Chronic seizure disorder. 10.Cirrhosis from hepatitis C. 11.Hepatocellular carcinoma stage IV with metastasis to the lungs. 12.Ascites secondary to cirrhosis and malignancy. 13.Advancing medical debility due to underlying advanced malignancy. PLAN: The patient is due for a paracentesis. Did receive IV vitamin K. this is often times rather severe, hence will start oral vitamin K so the patient can be tapped. The patient pain appears to be more musculoskeletal. Cardiology was consulted for the same. The patient also has got mets from the liver. Oncology team has been consulted. PT/OT will also be consulted due to very poor functional state. Care was discussed with the patient and the . Care was discussed. Copy to Dr. Aguiar. MMBREANAL / ANUELN: [id number] /
[2018-10-13] MEDS: PHYTONADIONE ORAL 5 MG/5 ML ORAL.SYRG PO SCH (16:41)
[2018-10-13] MEDS: FAMOTIDINE 20 MG TAB PO SCH (21:39)
[2018-10-14 08:51] LABS: INR 1.9 (<1.2); Prothrombin Time 18.6 sec (9.0-12.0)
[2018-10-14] MEDS: SPIRONOLACTONE 25 MG TAB PO SCH (08:53)
[2018-10-14] MEDS: LACTULOSE 20 GM/30 ML CUP PO SCH ×2 (08:53→21:39)
[2018-10-14] MEDS: levETIRAcetam 500 MG TAB PO SCH ×4 (08:54→21:39)
[2018-10-14] MEDS: METOPROLOL TARTRATE 25 MG TAB PO SCH ×2 (08:54→21:39)
[2018-10-14] MEDS: MAGNESIUM OXIDE 400 MG TAB PO SCH (08:54)
[2018-10-14] MEDS: BELBUCA MISCELLANE SCH ×2 (09:21→21:39)
[2018-10-14] MEDS: PHYTONADIONE ORAL 5 MG/5 ML ORAL.SYRG PO SCH (09:21)
[2018-10-14] MEDS: HYDROmorphone 1 MG/ML 1 ML SYRINGE IVP PRN (10:57)
--- NOTE | 2018-10-14 14:38 | US ---
EXAMINATION TYPE: US abdomen limited DATE OF EXAM: 10/14/2018 COMPARISON: NONE CLINICAL HISTORY: assess for fluid pocket please. Large volume abdominal pelvic ascites is seen. Skin thickness measures 1.1 cm. One of the largest poc kets measures 10 cm. Fluid is seen within all 4 quadrants of the abdomen. IMPRESSION: Large volume abdominopelvic ascites.
[2018-10-14 15:19] LABS: Basophils % (A) 0 %; Eosinophils # (A) 0.2 k/uL (0-0.7); Eosinophils % (A) 2 %; HCT 39.9 % (34.0-46.0); HGB 12.6 gm/dL (11.4-16.0); Hypochromasia Slight; Lymphocytes # (A) 0.5 k/uL (1.0-4.8); Lymphocytes % (A) 5 %; MCH 34.9 pg (25.0-35.0); MCHC 31.5 g/dL (31.0-37.0); Macrocytosis Marked; Mean Platelet Volume 9.2; Monocytes # (A) 1.1 k/uL (0-1.0); Monocytes % (A) 11 %; Neutrophils # (A) 7.6 k/uL (1.3-7.7); Neutrophils % (A) 78 %; RBC 3.61 m/uL (3.80-5.40); RDW 15.8 % (11.5-15.5); WBC 9.7 k/uL (3.8-10.6)
[2018-10-14 15:20] LABS: MCV 110.7 fL (80.0-100.0)
[2018-10-14 15:21] LABS: Platelet Count 52 k/uL (150-450)
--- NOTE | 2018-10-14 21:31 | P.PN ---
Subjective Progress Note Date: 10/14/18 Principal diagnosis: fall, intractable pain In follow-up today patient is seen sitting in a chair, she complains of still feeling pain across her chest, cardiac workup thus far has been negative. Patient also has complaints of discomfort in the back and tailbone area. No fevers, chills, nausea, vomiting, difficulty in breathing, she feels significantly better after paracentesis, abd distension better, leg swelling is stable and uncomfortable for her, no reported bleeding. Objective - Vital Signs Vital signs: Vital Signs Temp 98.5 F 10/14/18 20:35 Pulse 80 10/14/18 20:35 Resp 16 10/14/18 20:35 BP 99/58 10/14/18 20:35 Pulse Ox 97 10/14/18 20:35 Intake & Output 10/14/18 10/14/18 10/15/18 06:59 18:59 06:59 Intake Total 350 Output Total 300 Balance 50 Weight 67 kg Intake: Intake, IV Titration 350 Amount Sodium Chloride 0.9% 1, 350 000 ml @ 100 mls/hr IV . Q10H STA Rx#:[id number] Output: Urine 300 Other: Voiding Method Indwelling Catheter Indwelling Catheter # Bowel Movements 3 - Constitutional General appearance: Present: cooperative, no acute distress, thin - EENT Eyes: Present: EOMI - Respiratory Respiratory: bilateral: CTA - Cardiovascular Rhythm: regular Heart sounds: normal: S1, S2 Abnormal Heart Sounds: Absent: systolic murmur, diastolic murmur, rub, S3 Gallop, S4 Gallop, click, other - Peripheral edema leg Peripheral Edema: bilateral: 2+ - Gastrointestinal General gastrointestinal: Present: distended, normal bowel sounds, soft - Neurologic Neurologic: Present: CNII-XII intact - Musculoskeletal Musculoskeletal: Present: generalized weakness - Psychiatric Psychiatric: Present: A&O x's 3, appropriate affect, intact judgment & insight - Labs CBC & Chem 7: 10/14/18 14:34 10/12/18 17:30 Labs: Abnormal Lab Results - Last 24 Hours (Table) 10/14/18 10/14/18 Range/Units 08:05 14:34 RBC 3.61 L (3.80-5.40) m/uL MCV 110.7 H D (80.0-100.0) fL RDW 15.8 H (11.5-15.5) % Plt Count 52 L (150-450) k/uL Lymphocytes # 0.5 L (1.0-4.8) k/uL Monocytes # 1.1 H (0-1.0) k/uL PT 18.6 H (9.0-12.0) sec INR 1.9 H (<1.2) Microbiology - Last 24 Hours (Table) 10/13/18 11:35 Urine Culture - Final Urine,Voided Assessment and Plan Plan: 1) HCC- status post immunotherapy treatment. Patient's AFP decreased from 2144 on 08/28 to 1477 on 09/25. She is status post 2 cycles, next cycle is due on 10/21. Plan to continue treatment at this time 2) Elevated LFTs, bilirubin and unconjugated bilirubin-will recheck labs in the a.m. Liver numbers aren't significant enough to suggest immune hepatitis-type reaction at this time. Patient is feeling better. Will follow daily 3) Moderate protein/malnutrition-secondary to disease and compromised nutrition. Supplements ordered. 4) High risk for decubitus ulcers-reviewed with patient she is going to need to shift her weight or she is going to have skin breakdown
[2018-10-14] MEDS ORDERED: PHYTONADIONE 5 MG in SODIUM CHLORIDE 0.9% 50 ML IVPB STA (21:36)
[2018-10-14] MEDS: FAMOTIDINE 20 MG TAB PO SCH (21:39)
--- NOTE | 2018-10-14 21:47 | P.CONS ---
History of Present Illness - Reason for Consult Consult date: 10/13/18 Hepatocellular cancer, progressive weakness - History of Present Illness This is a 68 yr old WF, pt of Dr Lima, known to have hepatitis C,genotype 3,treated with DAA in the past, complicated by liver cirrhosis,was diagnosed with hepatocellular carcinoma,initially,in 2016,she underwent ablation to 2 liver lesions in May/2017,she did fine in that regard until the fall when imaging revealed possible recurrent HCC,she had repeat liver MRI on 06/29/2018 which showed interval development of an infiltrative hepatocellular carcinoma centered between the 2 prior ablation zones measuring 4x2cm with contiguous tumor thrombus in the posterior division of right portal vein and right main portal vein extending to the level of portal vein bifurcation,in additioon to morphologic evidence of liver cirrhosis and portal hypertension. Her serum AFP done on 06/29/2018 was up to 921ng/ml,her CMP revealed total vicente irubin of 1.8,ALK 93,AST 70,ALT 43. She also had a CT scan of chest on 07/08/2018 which revealed 1.6 cm nodule in JEFF and 6 mm nodule in LLL of her lung. Based on that,she was staged as Bruce stage C HCC and nexavar was recommended at [facility] (chosen over lenvatinib due to concern about blood pressure). She start nexavar,ordered by [facility] by the end of June/2018 at 200 mg bid with plan to increase it to 400 mg bid based on tolerance. On 07/31/2018,AFP was 2787. On 08/28/2018,AFP was 2144. However, on 09/02/2018,repeat abdominal MRI at [facility] revealed significant increase in tumor bulk in liver,significant increase in ascites,right portal vein tumor thrombus, and repeat CT scan of chest revealed increase in size of number and size of lung nodules. She was thus felt to be progressing, despite the slight downward trend in the AFP. On 09/09/2018,she started keytruda every 3 weeks, As it was felt, clinically, that increasing the dose of Nexavar would likely not be effective. In addition the patient was having significant issues with tolerance even at the lower dose. She is status post 2 cycles of Keytruda, with the most recent on 09/30/18. Labs on 09/25/18 had shown drop of AFP to 1477. Bilirubin had been 1.4 At her office visit on 09/25/18, the patient had been noted to be quite weak, with overall very decreased activity level. Palliative care had been ordered. The patient came in with essentially progression of symptoms of fatigue, very poor endurance and activity, leading to essentially her falling from the sofa. She did sustain some chest wall trauma. She, therefore, came to the ER and was admitted for further management. She has been having progressive ascites, requiring periodic paracentesis. She was supposed to have a repeat paracentesis next week, but has noted increasing distention and abdominal discomfort. She denied any fever or chills, or diarrhea. On this admission bilirubin was noted to have increased into the 4 range, and INR was up to 2. Review of Systems Constitutional: Reports fatigue, Reports weakness, Reports weight loss Eyes: denies blurred vision, denies pain Ears: deny: decreased hearing, ear discharge, earache, tinnitus Ears, nose, mouth and throat: Denies headache, Denies sore throat Cardiovascular: Reports decreased exercise tolerance, Reports dyspnea on exertion, Reports lightheadedness Respiratory: Reports dyspnea Gastrointestinal: Reports as per HPI, Reports abdominal pain, Reports bloating Genitourinary: Denies dysuria, Denies hematuria Menstruation: Reports postmenopausal Musculoskeletal: Reports muscle weakness Integumentary: Denies pruritus, Denies rash Neurological: Reports gait dysfunction, Reports weakness Psychiatric: Reports anxiety Endocrine: Reports fatigue Hematologic/Lymphatic: Reports as per HPI Past Medical History Past Medical History: Cancer, CVA/TIA, Hypertension, Liver Disease, Osteoarthritis (OA), Seizure Disorder Additional Past Medical History / Comment(s): hep C, cirrhosis, cva 2001- rt leg & arm weak, rt heel fx 2006, stage 4 liver cancer, brain aneurysm 17 yrs. ago, last seizure couple years ago, fluid retention in abdomen, legs, immnotherapy- 09/30 History of Any Multi-Drug Resistant Organisms: None Reported Past Surgical History: Joint Replacement, Tonsillectomy, Tubal Ligation Additional Past Surgical History / Comment(s): cataracts, colonoscopy, egd, right hip replaced, ablation of liver Past Anesthesia/Blood Transfusion Reactions: No Reported Reaction Past Psychological History: No Psychological Hx Reported Additional Psychological History / Comment(s): Lives with , Javan. Walker, cane, shower chair. Bars in the shower. Power scooter at home. Hospital bed on order. Smoking Status: Former smoker Past Alcohol Use History: None Reported Additional Past Alcohol Use History / Comment(s): smoked for > 40 years smoked1 cig per day, quit completely in June 2018 quit drinking 2001 Past Drug Use History: Marijuana Additional Drug Use History / Comment(s): Uses marijuana daily. - Past Family History Mother Family Medical History: Myocardial Infarction ([place]) Father Family Medical History: Cancer Additional Family Medical History / Comment(s): from melanoma Brother(s) Family Medical History: Cancer Additional Family Medical History / Comment(s): 1 brohter from throat cancer, 1 brother has hypertension Sister(s) Family Medical History: Cancer Additional Family Medical History / Comment(s): breast cancer, hypertension Medications and Allergies Home Medications Medication Instructions Recorded Confirmed Type levETIRAcetam [Levetiracetam] 500 mg PO QID 01/18/16 10/12/18 History Buprenorphine HCl [Belbuca] 450 mcg BC BID 09/23/18 10/12/18 History Cholecalciferol [Vitamin D3] 1,000 unit PO DAILY 09/23/18 10/12/18 History Furosemide [Lasix] 20 mg PO DAILY 09/23/18 10/12/18 History Magnesium Oxide [Mag-Ox] 400 mg PO DAILY 09/23/18 10/12/18 History Ondansetron [Zofran] 4 mg PO DAILY 09/23/18 10/12/18 History Ranitidine HCl [Zantac] 150 mg PO HS 09/23/18 10/12/18 History Spironolactone [Aldactone] 50 mg PO DAILY 09/23/18 10/12/18 History oxyCODONE HCL [oxyCODONE HCL (IR)] 15 mg PO Q6H 10/12/18 10/12/18 History Allergies Allergy/AdvReac Type Severity Reaction Status Date / Time morphine AdvReac Nausea & Verified 10/12/18 17:08 Vomiting Physical Exam Vitals: Vital Signs Temp Pulse Pulse Pulse Resp BP Pulse Ox 10/14/18 20:35 98.5 F 80 16 99/58 97 10/14/18 17:04 77 16 113/63 96 10/14/18 16:48 77 16 103/62 96 10/14/18 16:34 79 16 116/66 96 10/14/18 16:20 78 16 114/69 98 10/14/18 16:06 78 16 145/80 97 10/14/18 11:49 98 F 73 17 137/75 95 10/14/18 05:00 98.3 F 73 18 98/60 92 L Intake and Output 10/14/18 10/14/18 10/14/18 06:59 14:59 22:59 Output Total 300 Balance -300 Output: Urine 300 Other: Voiding Method Indwelling Catheter Indwelling Catheter Indwelling Catheter # Bowel Movements 3 Weight 67 kg - Constitutional Marked generalized weakness General appearance: no acute distress - EENT Eyes: EOMI, PERRLA, scleral icterus ENT: hearing grossly normal, normal oropharynx - Neck Neck: no lymphadenopathy Thyroid: bilateral: normal size - Respiratory Respiratory: bilateral: diminished - Cardiovascular Rhythm: regular Heart sounds: normal: S1, S2 - Gastrointestinal General gastrointestinal: distended, normal bowel sounds - Integumentary Integumentary: normal - Neurologic Neurologic: CNII-XII intact - Musculoskeletal Musculoskeletal: generalized weakness, strength equal bilaterally - Psychiatric Psychiatric: A&O x's 3, appropriate affect Results CBC & Chem 7: 10/14/18 14:34 10/12/18 17:30 Labs: Abnormal Lab Results - Last 24 Hours (Table) 10/14/18 10/14/18 Range/Units 08:05 14:34 RBC 3.61 L (3.80-5.40) m/uL MCV 110.7 H D (80.0-100.0) fL RDW 15.8 H (11.5-15.5) % Plt Count 52 L (150-450) k/uL Lymphocytes # 0.5 L (1.0-4.8) k/uL Monocytes # 1.1 H (0-1.0) k/uL PT 18.6 H (9.0-12.0) sec INR 1.9 H (<1.2) Microbiology - Last 24 Hours (Table) 10/13/18 11:35 Urine Culture - Final Urine,Voided Comments: ECHO report reviewed Chest x-ray: report reviewed Assessment and Plan (1) Weakness Narrative/Plan: The patient has had progressive weakness, as noted in the HPI. This is the underlying reason for this admission, with the patient falling to the floor from the sofa due to the same. This is multifactorial, due to underlying malignancy and liver dysfunction, intravascular volume depletion due to recurrent ascites, as well as protein loss due to need of frequent ascites fluid drainage. There appears to be no evidence of infection. At this time the treatment would have to be supportive, with hydration. There may be some temporary benefit with albumin infusion. She will also likely need a paracentesis sooner than next week. Current Visit: Yes Status: Acute Code(s): R53.1 - WEAKNESS SNOMED Code(s): 08346021 (2) Hepatocellular carcinoma Narrative/Plan: Diagnostic and therapeutic circumstances as described. The patient has been started on a new regimen, and is status post 2 cycles. Clinically she appears to be declining functional he. However alpha-fetoprotein did show significant drop after the first cycle of keytruda. Repeat AFP to check pattern. If there is no progression, then her regimen can be continued in the outpatient setting, assuming that her performance status improves sufficiently. Current Visit: Yes Status: Acute Code(s): C22.0 - LIVER CELL CARCINOMA SNOMED Code(s): 990135439 (3) Abnormal liver enzymes Narrative/Plan: The patient has had increase in liver enzymes, compared to labs done in the office 3 weeks ago. Assuming that her decline in alpha-fetoprotein is real, then the increase could indicate progressive liver dysfunction, independent of cancer progression. I will check ultrasound, rule out any obstruction. Other possibilities autoimmune hepatitis, due to his immunotherapy, though this is overall less likely, given the generally rare incidence. Continue to monitor liver enzymes Current Visit: Yes Status: Acute Code(s): R74.8 - ABNORMAL LEVELS OF OTHER SERUM ENZYMES SNOMED Code(s): 006099311 (4) Coagulopathy Narrative/Plan: Due to hepatic insufficiency. Coags are also worse compared to the office. She will receive vitamin K to improve the coags so that she can have paracentesis. Vitamin K will be administered IV. Oral is unlikely to be effective, given ongoing use of lactulose, as well as the likelihood of mucosal gut edema with liver insufficiency. Current Visit: Yes Status: Acute Code(s): D68.9 - COAGULATION DEFECT, UNSPECIFIED SNOMED Code(s): 19627878
--- NOTE | 2018-10-14 23:43 | PN ---
PROGRESS NOTE DATE OF SERVICE: 10/14/2018 PRESENTING COMPLAINT: Tired. INTERVAL HISTORY: This is a patient who is being treated for hepatitis C carcinoma with metastases to the lungs. The patient did get vitamin K for increased pro time and late evening did get a paracentesis done. The patient was seen by me earlier today. REVIEW OF SYSTEMS: Done for constitutional, cardiovascular, GI, pulmonary; relevant findings as above. CURRENT MEDICATIONS: Include IV vitamin K. PHYSICAL EXAMINATION: Temperature 98, pulse 73, respiration 17, blood pressure 137/75, pulse ox 95% on room air. GENERAL APPEARANCE: Sitting up on a chair. Tired. EYES: Pupils equal. Conjunctivae pale. NECK: JVD unable to assess. Mass not palpable. RESPIRATORY: Effort increased. LUNGS: Decreased breath sounds. CARDIOVASCULAR: First and second sounds normal. No edema. ABDOMEN: Distended. Soft. Liver and spleen not palpable. PSYCHIATRY: Alert and oriented x3. Mood and affect normal. MUSCULOSKELETAL: Diffuse wasting of muscles. INVESTIGATIONS: White count 9.7, hemoglobin 12.6, platelets 52. Pro time 18.6. ASSESSMENT: 1. Anterior chest wall pain, reproducible, likely musculoskeletal from fall. 2. Severe protein-calorie malnutrition with bony prominences and loss of muscle mass. 3. Hyperammonemia secondary to hepatocellular cancer. 4. Lactic acidosis, type B; no evidence of sepsis. 5. Hypercoagulable state due to vitamin K deficiency with prolonged pro time due to liver disease. 6. Severe thrombocytopenia due to chronic liver disease. 7. Essential hypertension. 8. Primary osteoarthritis. 9. Chronic seizure disorder. 10.Cirrhosis from hepatitis C. 11.Hepatocellular carcinoma, stage IV, with metastasis to the lungs. 12.Ascites secondary to cirrhosis and malignancy, symptomatic. 13.Advancing medical debility due to underlying advanced malignancy. PLAN: The patient was going for paracentesis later today, and later I was informed that was done. In the meantime, continue current medication and treatment plan. Overall prognosis guarded. MMODL / IJN: [id number] /
[2018-10-15 05:05] VITALS: RESP 16
[2018-10-15 07:40] LABS: INR 1.9 (<1.2); Prothrombin Time 18.8 sec (9.0-12.0)
[2018-10-15 07:56] LABS: ALT 69 U/L (9-52); AST 117 U/L (14-36); Albumin 1.9 g/dL (3.5-5.0); Alkaline Phosphatase 129 U/L (38-126); Anion Gap 3 mmol/L; Blood Urea Nitrogen 19 mg/dL (7-17); Calcium 8.2 mg/dL (8.4-10.2); Carbon Dioxide 23 mmol/L (22-30); Chloride 105 mmol/L (98-107); Glucose 71 mg/dL (74-99); Potassium 4.6 mmol/L (3.5-5.1); Sodium 131 mmol/L (137-145); Total Protein 4.6 g/dL (6.3-8.2)
--- NOTE | 2018-10-15 07:59 | US ---
EXAMINATION TYPE: US paracentesis abd w/image DATE OF EXAM: 10/14/2018 COMPARISON: NONE HISTORY: Ascites. PROCEDURE: Maximal barrier technique was utilized. The skin overlying a suitable pocket of fluid was localized with ultrasound and the overlying skin was prepped and draped. Ultrasound was utilized with sterile technique. Lidocaine was used for local anesthesia and a skin altagracia made with a scalpel. Catheter was advanced under direct ultrasound guidance into a suitable pocket of fluid and approximately 7.5 liter s of serous fluid were removed. Catheter was withdrawn and hemostasis achieved. There is no immedia te complication; the patient is discharged in stable condition. IMPRESSION: STATUS POST ULTRASOUND GUIDED PARACENTESIS FOR PALLIATION OF ASCITES. THIS PROCEDURE WA S PERFORMED BY THE UNDERSIGNED.
--- NOTE | 2018-10-15 08:58 | US ---
EXAMINATION TYPE: US liver DATE OF EXAM: 10/15/2018 COMPARISON: NONE CLINICAL HISTORY: liver enzyme elevation, HCC, check for obstruction. EXAM MEASUREMENTS: Liver Length: 14.9 cm Gallbladder Wall: ? 1.1? cm CBD: 0.9 cm Right Kidney: 11.8 x 4.8 x 5.5cm Ascites Pancreas: Obscured by bowel gas Liver: grossly heterogenous, probable masses, largest measuring 5.0 x 3.3 x 6.0cm, portal v and hepa tic veins appear patent Gallbladder: difficult to visualize, appears to be full of sludge, stones with a thick edematous wall Evidence for sonographic Singh's sign: no CBD: dilated Right Kidney: No hydronephrosis or masses seen IMPRESSION: 1. Liver is grossly heterogenous underlying masses suspected. Peripheral hepatic contour may reflect underlying cirrhotic liver disease. 2. Acute cholecystitis is difficult to exclude.
[2018-10-15] MEDS: MAGNESIUM OXIDE 400 MG TAB PO SCH (09:58)
[2018-10-15] MEDS: METOPROLOL TARTRATE 25 MG TAB PO SCH (09:58)
[2018-10-15] MEDS: levETIRAcetam 500 MG TAB PO SCH ×2 (09:58→14:54)
[2018-10-15] MEDS: SPIRONOLACTONE 25 MG TAB PO SCH (09:58)
[2018-10-15] MEDS: LACTULOSE 20 GM/30 ML CUP PO SCH (09:58)
[2018-10-15] MEDS: BELBUCA MISCELLANE SCH (10:51)
[2018-10-15 11:52] VITALS: BP 87/52; PULSE 76; TEMP 98.3
[2018-10-15 12:09] VITALS: BMI 20.5
--- NOTE | 2018-10-15 17:00 | P.PN ---
Subjective Progress Note Date: 10/15/18 Principal diagnosis: fall, intractable pain In follow-up today patient is sitting at the bedside, leaning to go home. She still has complaints of feeling pain in the anterior chest wall, she thinks it may just be "bruised" from her fall to the floor. Her 15 mg of OxyIR was inc reased in frequency yesterday 2 every 4 hours when necessary. Patient has no other complaints at this time, pain is controlled N Objective - Vital Signs Vital signs: Vital Signs Temp 98.3 F 10/15/18 11:40 Pulse 76 10/15/18 11:40 Resp 16 10/15/18 11:40 BP 87/52 10/15/18 11:40 Pulse Ox 97 10/15/18 11:40 Intake & Output 10/14/18 10/15/18 10/15/18 18:59 06:59 18:59 Intake Total 50 Output Total 250 200 Balance -200 -200 Weight 59.5 kg 59.5 kg Intake: Intake, IV Titration 50 Amount Phytonadione 5 mg In 50 Sodium Chloride 0.9% 50 ml @ 100 mls/hr IVPB ONCE STA Rx#:[id number] Output: Urine 250 200 Uretheral (Abdalla) 200 Other: Voiding Method Indwelling Catheter Indwelling Catheter # Bowel Movements 3 - Exam Well-developed, thin, cachectic, no acute distress, alert and oriented 4, no respiratory distress, mild abdominal distention is visible - Labs CBC & Chem 7: 10/14/18 14:34 10/15/18 07:04 Labs: Abnormal Lab Results - Last 24 Hours (Table) 10/15/18 10/15/18 10/15/18 Range/Units 07:04 07:04 07:04 PT 18.8 H (9.0-12.0) sec INR 1.9 H (<1.2) Sodium 131 L (137-145) mmol/L BUN 19 H (7-17) mg/dL Creatinine 0.40 L (0.52-1.04) mg/dL Glucose 71 L (74-99) mg/dL Calcium 8.2 L (8.4-10.2) mg/dL Total Bilirubin 5.0 H (0.2-1.3) mg/dL AST 117 H (14-36) U/L ALT 69 H (9-52) U/L Alkaline Phosphatase 129 H (38-126) U/L Total Protein 4.6 L (6.3-8.2) g/dL Albumin 1.9 L (3.5-5.0) g/dL Tumor Marker AFP 1495.4 H (0.0-7.9) ng/mL Microbiology - Last 24 Hours (Table) 10/13/18 11:35 Urine Culture - Final Urine,Voided Assessment and Plan Plan: 1) HCC- status post immunotherapy treatment. Patient's AFP decreased from 2144 on 08/28 to 1477 on 09/25, slightly elevated 08/05/1994 on 10/14. She is status post 2 cycles, next cycle is due on 10/21. Plan to continue treatment at this time. 2) Elevated LFTs-stable, less likely the patient is experiencing an immune- related hepatitis. Elevated bilirubin, with increased to 5 today. She is due in office in 5 days, stat labs will be drawn at that time to reevaluate. Ultrasound of the abdomen did mention cholecystitis was difficult to exclude but patient has no symptoms, she is doing a little better overall. 4) Moderate protein/malnutrition-secondary to disease and compromised nutrition. Supplements ordered. 5) High risk for decubitus ulcers-reviewed with patient she is going to need to shift her weight or she is going to have skin breakdown
--- NOTE | 2018-10-17 00:12 | DS ---
DISCHARGE SUMMARY DATE OF ADMISSION: 10/12/2018 DATE OF DISCHARGE: 10/16/2018 FINAL DIAGNOSES: 1. Anterior chest wall pain, reproducible, likely musculoskeletal from recent fall. 2. Severe protein-calorie malnutrition from with bony bump from his loss of muscle mass from decreased oral intake. 3. Hyperammonemia secondary to hepatocellular cancer. 4. Lactic acidosis type B, no evidence of sepsis. 5. Hypercoagulable state due to vitamin K deficiency with prolonged pro time due to liver disease and malnutrition. 6. Severe thrombocytopenia due to chronic liver disease. 7. Essential hypertension. 8. Primary osteoarthritis. 9. Chronic seizure disorder. 10.Cirrhosis from hepatitis C. 11.Hepatocellular carcinoma stage IV with metastasis to the lungs. 12.Ascites secondary to cirrhosis and malignancy, systematic. 13.Advancing medical debility due to advanced malignancy. PROCEDURE: Paracentesis by Interventional Radiology. 7.5 L of serous fluid was removed. HOSPITAL COURSE: This patient who fell off from a sofa, presented with chest pain felt to be musculoskeletal in nature. It was reproducible, did actually get better. 2D echo showed EF of more than 70%. Large volume paracentesis was carried out. The patient is following with Oncology getting treatment for the tumor. Day of discharge, care was discussed with the patient and in detail. Questions were answered. The patient also had a liver ultrasound with masses present. PHYSICAL EXAMINATION: Temperature 98.3, pulse 76, respirations 16, blood pressure 87/52. Pulse ox 97% on room air. Abdomen less distended. Psych: Patient able answer questions. Diffuse wasting of muscles. INVESTIGATIONS: White count 9.7, hemoglobin 12.6, potassium 4.6, BUN 19, creatinine 0.4. Protime 18.8. Tumor marker alpha-fetoprotein 1495, albumin 1.9. Discussion and discharge planning more than 35 minutes. DISCHARGE MEDICATIONS: 1. Keppra 500 mg q.i.d. 2. Belbuca 450 mg b.i.d. 3. Vitamin D3 1000 units p.o. daily. 4. Lasix 20 mg p.o. daily. 5. Magnesium oxide 400 mg p.o. daily. 6. Zofran 4 mg daily. 7. Zantac 150 mg at bedtime. 8. Aldactone 50 mg p.o. daily. 9. Oxycodone IR 50 mg q.6. 10.TUMS 500 mg t.i.d. p.r.n. 11.Lactulose 20 grams p.o. b.i.d. 12.Lopressor 12.5 p.o. b.i.d. FOLLOWUP: Follow up with Dr. Aguiar on October 18, 2018, follow up with Dr. Linares on Oct 20 2018 Discussion and discharge planning more than 35 minutes. The patient also being given a hospital bed at home for COPD, lung cancer sp that she can be up more than [address] Aguiar. IDA / IJN: [id number] /
== END 2018-10-15 15:25 | disposition home health service (06) | DRG 435 ==
LOC: EC 16:18 → 3NMEDONC 18:39
PROVIDERS: ADMIT Hospitalist; ATTEND Hospitalist
PROC: 0W9G3ZZ Drainage of Peritoneal Cavity, Percutaneous Approach (ICD-10-PCS; principal; 2018-10-15)
DX: C22.0 Liver cell carcinoma (principal); E43 Unspecified severe protein-calorie malnutrition; C78.00 Secondary malignant neoplasm of unspecified lung; R18.8 Other ascites; E87.2 Acidosis; K76.6 Portal hypertension; D68.9 Coagulation defect, unspecified; I69.954 Hemiplegia and hemiparesis following unspecified cerebrovascular disease affecting left non-dominant side; D69.59 Other secondary thrombocytopenia; E86.0 Dehydration; J44.9 Chronic obstructive pulmonary disease, unspecified; K74.60 Unspecified cirrhosis of liver; B19.20 Unspecified viral hepatitis C without hepatic coma; E56.1 Deficiency of vitamin K; G40.909 Epilepsy, unspecified, not intractable, without status epilepticus; I10 Essential (primary) hypertension; M19.91 Primary osteoarthritis, unspecified site; R07.89 Other chest pain; G89.3 Neoplasm related pain (acute) (chronic); Z68.20 Body mass index [BMI] 20.0-20.9, adult; Z79.899 Other long term (current) drug therapy; Z79.891 Long term (current) use of opiate analgesic; Z88.5 Allergy status to narcotic agent; Z96.649 Presence of unspecified artificial hip joint; Z98.51 Tubal ligation status; Z87.891 Personal history of nicotine dependence; Z98.42 Cataract extraction status, left eye; Z98.41 Cataract extraction status, right eye; Z96.1 Presence of intraocular lens; Z80.3 Family history of malignant neoplasm of breast; Z80.8 Family history of malignant neoplasm of other organs or systems; Z82.49 Family history of ischemic heart disease and other diseases of the circulatory system; W08.XXXA Fall from other furniture, initial encounter
CPT/HCPCS: 36415; 49083; 71046; 76705; 80053; 81001; 82105; 82140; 82150; 82248; 82550; 82553; 83605; 83690; 84484; 85025; 85610; 85730; 86850; 86900; 86901; 87086; 93005; 93306; 96374; 99285